=== PATIENT | female | born 1960 | race Caucasian/White ===

== ENCOUNTER 2021-02-22 04:45 | Day surgery (SDC) | payer OTHER ==
[2021-02-20 15:39] VITALS: BMI 19.9
[~2021-02-22 04:45] MED LIST: ACETAMINOPHEN 325 MG TABLET (FP) PO PRN; BSS (NA/CA/MG/K) BALANCED SALT SOLUTION OPHTH SOLN 15 ML BOTTLE OS ONE; CHONDROITIN SU A/HYALUR SOD 1 KIT IO ONE; EPINEPHrine/PF 1 MG/1 ML (1:1,000) AMPULE SQ ONE; LIDOCAINE HCL 1% PRESERVATIVE FREE - 30ML VIAL IO ONE; POVIDONE-IODINE 5% OPHTHALMIC PREP 30 ML SOLUTION OS ONE; TETRACAINE 0.5% OPHTH SOLN 2 ML BOTTLE TP ONE
[2021-02-22] MEDS ORDERED: POVIDONE-IODINE 5% OPHTHALMIC PREP 30 ML SOLUTION ONE (07:20)
[2021-02-22] MEDS ORDERED: EPINEPHrine/PF 1 MG/1 ML (1:1,000) AMPULE ONE (07:20)
[2021-02-22] MEDS ORDERED: LIDOCAINE HCL/PF 1% SDV 5ML VIAL ONE (07:20)
[2021-02-22] MEDS ORDERED: TETRACAINE 0.5% OPHTH SOLN 2 ML BOTTLE ONE (07:20)
[2021-02-22] MEDS ORDERED: TRYPAN BLUE 0.5 ML DISP.SYRIN ONE (07:20)
[2021-02-22] MEDS ORDERED: CHONDROITIN SU A/HYALUR SOD 1 KIT ONE (07:25)
[2021-02-22] MEDS ORDERED: TROPICAMIDE 1% OPHTH SOLN 15 ML BOTTLE ONE (07:58)
[2021-02-22] MEDS ORDERED: PHENYLEPHRINE 2.5% OPTHALMIC DROP BOTTLE ONE (07:58)
[2021-02-22] MEDS ORDERED: CYCLOPENTOLATE HCL 1% OPHTH SOLN 2 ML BOTTLE ONE (07:58)
[2021-02-22] MEDS ORDERED: KETOROLAC TROMETHAMINE 0.5% EYE DROP 1 DROP DROPS ONE (07:58)
[2021-02-22] MEDS ORDERED: OFLOXACIN 0.3% OPHTHALMIC SOLUTION 5 ML BOTTLE ONE (07:58)
[2021-02-22] MEDS: OFLOXACIN 0.3% OPHTHALMIC SOLUTION 5 ML BOTTLE OP SCH ×3 (08:05→08:15)
[2021-02-22] MEDS: CYCLOPENTOLATE HCL 1% OPHTH SOLN 2 ML BOTTLE OP SCH ×3 (08:05→08:15)
[2021-02-22] MEDS: PHENYLEPHRINE 2.5% OPHTH SOLN 15 ML BOTTLE OP SCH ×3 (08:05→08:15)
[2021-02-22] MEDS: TROPICAMIDE 1% OPHTH SOLN 15 ML BOTTLE OP SCH ×3 (08:05→08:15)
[2021-02-22] MEDS: KETOROLAC TROMETHAMINE 0.5% EYE DROP 1 DROP DROPS OP SCH ×3 (08:05→08:15)
[2021-02-22] MEDS ORDERED: MIDAZOLAM HCL 2 MG/2 ML SINGLE DOSE VIAL ONE (08:41)
[2021-02-22] MEDS ORDERED: TETRACAINE 0.5% OPHTH SOLN 2 ML BOTTLE TP ONE (08:57)
[2021-02-22] MEDS ORDERED: POVIDONE-IODINE 5% OPHTHALMIC PREP 30 ML SOLUTION OS ONE (08:59)
[2021-02-22] MEDS ORDERED: LIDOCAINE HCL 1% PRESERVATIVE FREE - 30ML VIAL IO ONE (09:06)
[2021-02-22] MEDS ORDERED: CHONDROITIN SU A/HYALUR SOD 1 KIT IO ONE (09:06)
[2021-02-22] MEDS ORDERED: BSS (NA/CA/MG/K) BALANCED SALT SOLUTION OPHTH SOLN 15 ML BOTTLE OS ONE (09:06)
[2021-02-22] MEDS ORDERED: EPINEPHrine/PF 1 MG/1 ML (1:1,000) AMPULE SQ ONE (09:13)
[2021-02-22 11:55] VITALS: BP 116/66; PULSE 70; TEMP 98.5
== END 2021-02-22 10:35 | disposition home or self-care (01) ==
LOC: JASU-SURG 04:45
PROVIDERS: ATTEND Ophthalmology
PROC: 08RK3JZ Replacement of Left Lens with Synthetic Substitute, Percutaneous Approach (ICD-10-PCS; principal; 2021-02-22 10:00)
DX: H26.9 Unspecified cataract (principal)